=== PATIENT | female | born 1950 | race Caucasian/White ===

== ENCOUNTER 2016-08-22 11:00 | Inpatient (IN) | payer MEDICARE, OTHER ==
[~2016-08-22] VITALS: Ht 180.3 cm; Wt 99.1 kg
--- NOTE | ~2016-08-22 | OR ---
PATIENT'S NAME: SANJAY ESCUDERO [facility] AGE: 66 Y [address] ROOM: [place] [address] LOCATION: [facility] ADMIT DATE: 09/05/2016 OR/Procedure Report DISCHARGE DATE: FAMILY PHYSICIAN: Gwendolyn Rolon APRN ATTENDING PHYSICIAN: BABS ARGUETA SURGEON: Babs Argueta MD [place] COMPTROLLER: 1. FEDE Naylor. 2. Vignesh Mcqueen CST/REVERSER. DATE OF PROCEDURE: 09/05/2016 PREOPERATIVE DIAGNOSIS: Primary osteoarthritis, left hip. POSTOPERATIVE DIAGNOSIS: Primary osteoarthritis, left hip. OPERATION: Left total hip arthroplasty with Oxley's Extra robotic arm guidance and computer navigation. ANESTHESIA: Spinal anesthesia plus periarticular local anesthesia (ropivacaine with epinephrine). ESTIMATED BLOOD LOSS: Approximately 250 mL. DRAIN: None. SPECIMEN: None. COMPLICATIONS: None. IMPLANTS: 1. Clyde Trident titanium size 56 mm hemispherical uncemented acetabular shell with 1 dome hole cover and no screws. 2. Bybee X3 neutral acetabular polyethylene liner with 36 mm inner diameter. 3. Bybee Accolade II size 5 high-offset uncemented femoral component. 4. A 36 mm diameter metallic femoral head with +0 mm neck length. INDICATION FOR SURGERY: Sanjay Escudero is a 66-year-old female who presents with advanced left hip primary osteoarthritis and associated severely compromised activities of daily living. The patient has decided to proceed with hip replacement after having been thoroughly counseled regarding the associated risks, benefits, and limitations. We have specifically reviewed the risks and implications of infection, deep venous thrombosis, pulmonary embolism, mortality, neurovascular complications, blood transfusion (and associated potential for disease transmission or transfusion reaction), stiffness, instability, leg length discrepancy, mechanical deterioration of PATIENT'S NAME: SANJAY ESCUDERO [facility] AGE: 66 Y [address] ROOM: [place] [address] LOCATION: [facility] ADMIT DATE: 09/05/2016 OR/Procedure Report DISCHARGE DATE: FAMILY PHYSICIAN: Gwendolyn Rolon APRN ATTENDING PHYSICIAN: BABS ARGUETA the components (due to wear and to loosening), and the potential need for revision. DESCRIPTION OF PROCEDURE: The patient was positioned in a lateral decubitus position with the left side up after administration of anesthesia and prophylactic antibiotics. An axillary roll was placed and the non-operative leg was well padded. The pelvis was locked perpendicularly to the floor on a pegboard. The left hip and entire operative extremity were prepped and draped with vigilant sterile technique. The patient's name as well as the intended operative side and procedure were confirmed with a verbal time-out involving myself, the circulating nurse, the scrub nurse, and the anesthesiologist. The left hip was approached through a standard posterolateral incision. The fascia leeann and the gluteus vineet fascia were sharply divided in line with the overlying skin incision. The sciatic nerve was identified and was vigilantly protected throughout the entire case. The short external rotators and posterior capsule were divided from their respective femoral insertions and tagged with four #1 Ethibond sutures for later repair. The hip was posteriorly dislocated with combined flexion, adduction, and internal rotation. The femoral neck osteotomy was performed with an oscillating saw. Inspection of the femoral head demonstrated full-thickness loss of articular cartilage involving over 50% of its weightbearing surface. There was no femoral head collapse. Circumferential acetabular exposure was obtained. Inspection of the acetabulum demonstrated full-thickness loss of articular cartilage involving the majority of its weightbearing surface. There were moderate-sized osteophytes medially and posteriorly. There was no dysplasia. There was extensive degenerative tearing of the anterior-superior acetabular labrum. There was a large effusion consisting of benign-appearing translucent synovial fluid. Remnants of the acetabular labrum were sharply thoroughly excised. The acetabulum was sequentially progressively reamed up to 56 mm with hemispherical power reamers. It should be noted that reaming was performed with the Oxley's Extra robotic arm guidance system. The final acetabular shell was impacted into position in 20 degrees of anteversion and 45 degrees of inclination. An excellent press-fit was obtained. No supplemental dome screw fixation was necessary. It should be noted that the acetabular shell was impacted into position using the Oxley's Extra robotic arm guidance system. A neutral trial liner was inserted. Attention was next focused upon femoral preparation. The femoral canal initiator was utilized. No reaming was performed (except for with the canal PATIENT'S NAME: SANJAY ESCUDERO [facility] AGE: 66 Y [address] ROOM: [id number] [place], [place] [id number] LOCATION: [facility] ADMIT DATE: 09/05/2016 OR/Procedure Report DISCHARGE DATE: FAMILY PHYSICIAN: Gwendolyn Rolon APRN ATTENDING PHYSICIAN: BABS ARGUETA). The femoral canal was subsequently sequentially progressively broached up to a size 5. The size 5 broach obtained excellent axial and rotational stability. Trial reductions with the above specified construct yielded acceptable stability and acceptable reproduction of leg length and offset. All trial components were removed. The final acetabular liner was inserted with excellent circumferential visualization of its locking mechanism to assure adequate deployment. The final femoral component was impacted into position. The femoral component achieved excellent axial and rotational stability. The trunnion of the femoral component was vigilantly protected prior to placement of the femoral head. The trunnion of the femoral component was thoroughly cleaned and dried prior to placement of the femoral head. The incision was thoroughly irrigated with bacteriostatic pulsatile saline lavage multiple times throughout the case. The entire joint space was thoroughly inspected and thoroughly irrigated to assure that there was no residual debris of any sort. A final reduction was then performed. After final reduction, the hip could be firmly externally rotated in full extension and zero degrees of abduction without anterior subluxation. In neutral rotation and zero degrees of abduction, the hip could be firmly flexed to 120 degrees without instability. At 90 degrees of flexion and zero degrees abduction, the hip could be internally rotated to 65 degrees before there was any hint of posterior subluxation. The posterior capsule and short external rotators were repaired through two drill holes in the posterior aspect of the greater trochanter. The fascia leeann and gluteus vineet fascia were closed with multiple simple and [id number] interrupted # 1 Ethibond and #1 Vicryl sutures. Subcutaneous tissues were thoroughly re-irrigated with bacteriostatic pulsatile saline lavage. Subcutaneous tissues were re-approximated with simple buried interrupted #0 Vicryl sutures. The skin was closed with superficial buried interrupted 2-0 Vicryl sutures followed by a running subcuticular 3-0 Monocryl suture, followed by Octylseal, followed by Steri- Strips with benzoin, followed by an occlusive Mepilex dressing. There were no intra-operative complications. It should be noted that an accessary anterior incision was made over the anterior iliac crest through which 3 partially threaded Steinmann pins were inserted into the anterior iliac wing between its inner and outer tables. These 3 pins were utilized to anchor the Clyde computer navigation guidance tracker arrays. These 3 pins were removed at the conclusion of the case, and PATIENT'S NAME: SANJAY ESCUDERO [facility] AGE: 66 Y [address] ROOM: [place] [address] LOCATION: [facility] ADMIT DATE: 09/05/2016 OR/Procedure Report DISCHARGE DATE: FAMILY PHYSICIAN: Gwendolyn Rolon APRN ATTENDING PHYSICIAN: BABS ARGUETA the incision was infiltrated with local anesthetic, irrigated with bacteriostatic pulsatile saline lavage, and closed with simple deep interrupted 0 Vicryl, followed by superficial buried interrupted 2-0 Vicryl and a running subcuticular 3-0 Monocryl suture, followed by Dermabond and Steri-Strips with benzoin. The incision was dressed with an occlusive Mepilex dressing. It should be noted that the physician's programs assistant played an active, integral role throughout this entire operation. By providing expert retraction, they greatly facilitated and expedited safe and effective exposure of the proximal femur and acetabulum for preparation and implantation of the components. They were also actively involved in the patient's positioning, prepping and draping, as well as wound closure. MD STEVEN LYON/jennifer /[id number] d: 09/05/16 1510 t: 09/14/16 1744, OPERATIVE SUMMARY
[~2016-08-22 11:00] MED LIST: CALCIUM 600 +1 EAC6 PO; LEVOTHROID (S125 MCG PO; OCUVITE WITH L1 EACH PO
--- NOTE | 2016-09-05 15:54 | NUR ---
Significant Event: Pt doing great, denies pain, last PO Dilaudid at 1500, scheduled tylenol at 1700, Mepilex drsg to hip, ice to hip, Up to BSC and recliner 1 asssist, VSS, last hourly at 1900, Antb at 1700-next at 0100 Follow up: Vitals, Pain?
--- NOTE | 2016-09-05 16:40 | NUR ---
Met with patient and who had attended the preop joint class. Verbalizes understanding with use of IS. Reports has walker, crutches, elevated toilet seat, hand held shower had and combination tub/shower at their one level home in [place]. will be available to help. No needs anticipated at this time. Will follow and assist as needed.
--- NOTE | 2016-09-06 04:39 | NUR ---
Significant Event: Alert/oriented x3. Possible dismissal today. No complaint of pain. VSS room air. CSM WNL. 1 void per bedside commode. Pt preferred staying in recliner. Bilateral foot pumps. Ice applied. Saline locks in both hands. Next Clindamycin due at 0900. 1 assist ambulation. Dressing C/D/I. Scheduled Tylenol ES, last at 0430. Follow up:
--- NOTE | 2016-09-06 12:20 | NUR ---
Introduced self/role to patients and her friend. She lives in [place] with her Rayshawn. He will be there to assist her. She went thru the joint book and they have all their DME and their home is ready for her return. Her has had joints replaced already. No barriers to going home or at home. She is hoping to be dismissed today. Added my name to her marker board.
[2016-09-06] MEDS ORDERED: TYLENOL EXTRA500 MG PO (14:32)
[2016-09-06] MEDS ORDERED: COLACE100 MG PO (14:32)
[2016-09-06] MEDS ORDERED: NEURONTIN300 MG PO (14:33)
[2016-09-06] MEDS ORDERED: THERA-VITE W/ B1 TAB PO (14:34)
[2016-09-06] MEDS ORDERED: MIRALAX17 GM PO (14:35)
[2016-09-06] MEDS ORDERED: XARELTO10 MG PO (14:36)
[2016-09-06] MEDS ORDERED: DILAUDID 2MG(HYD2 MG PO (14:38)
--- NOTE | 2016-09-06 16:12 | NUR ---
Dismissal Note: Ambulates with SBA and walker. Dressings C/D/I. Ice at all times. CSM WNL. Dilaudid 2mg last at 1355. Teo education given with dismissal instructions, patient and state understanding. IVs d/cd. Dismissed to home with per private vehicle.
== END 2016-09-06 16:00 | disposition disaster alternative care site (69) | DRG 470 ==
LOC: G3N 09-05 06:13
PROVIDERS: ADMIT Orthopaedic Surgery
PROC: 0SRB01A Replacement of Left Hip Joint with Metal Synthetic Substitute, Uncemented, Open Approach (ICD-10-PCS; principal; 2016-09-05)
DX: M16.12 Unilateral primary osteoarthritis, left hip (principal); E66.9 Obesity, unspecified; E03.9 Hypothyroidism, unspecified; E78.5 Hyperlipidemia, unspecified; Z88.0 Allergy status to penicillin; Z68.30 Body mass index [BMI] 30.0-30.9, adult
CPT/HCPCS: C1713; C1776; J1100; J1885; J2001; J2795; J7030; J7050; J7120

== ENCOUNTER → 2016-08-25 | Outpatient (CLI) | payer MEDICARE, OTHER ==
[~2016-08-25] MED LIST changes: +COLACE100 MG PO; +DILAUDID 2MG(HYD2 MG PO; +MIRALAX17 GM PO; +NEURONTIN300 MG PO; +THERA-VITE W/ B1 TAB PO; +TYLENOL EXTRA500 MG PO; +XARELTO10 MG PO
== END | disposition disaster alternative care site (69) ==
LOC: GNJRC 10:23
DX: Z01.818 Encounter for other preprocedural examination (principal); M16.12 Unilateral primary osteoarthritis, left hip; M25.552 Pain in left hip